=== PATIENT | male | born 1990 | race African-American/Black ===

== ENCOUNTER 2020-10-31 05:25 | Emergency (ER) | payer SELFPAY ==
[~2020-10-31] VITALS: Ht 172.7 cm; Wt 87.0 kg
[2020-10-31] MEDS ORDERED: LIDOCAINE HCL/PF 1% 10 MG/ML 5ML VIAL IJ ONE (06:00)
[2020-10-31 06:09] LABS: BASOPHILS % 0.6 % (0.0-2.0); EOSINOPHILS % 0.9 % (0.0-5.0); HEMATOCRIT. 44.9 % (42.0-52.0); HEMOGLOBIN. 15.1 g/dL (14.0-18.0); LYMPHOCYTES % 42.8 % (20.0-50.0); MEAN CORPUSCULAR HEMOGLOBIN 29.5 pg (28.0-32.0); MEAN CORPUSCULAR VOLUME 87.8 fL (80.0-94.0); MEAN PLATELET VOLUME 7.3 fl (7.4-10.4); MONOCYTES % 7.3 % (2.0-8.0); NEUTROPHILS % 48.4 % (40.0-76.0); PLATELET 395 x1000/uL (130-400); RED BLOOD CELL COUNT 5.11 mill/uL (4.7-6.1); RED CELL DISTRIBUTION WIDTH 14.2 % (11.6-14.6)
[2020-10-31 06:17] LABS: CHLORIDE 106 mEq/L (98-107)
[2020-10-31 06:30] LABS: ETHANOL BLOOD 442 mg/dL
[2020-10-31 11:20] VITALS: BP 119/72
== END 2020-10-31 11:51 | disposition home or self-care (01) ==
LOC: ER 05:25
DX: S01.112A Laceration without foreign body of left eyelid and periocular area, initial encounter (principal); F10.229 Alcohol dependence with intoxication, unspecified; Y90.8 Blood alcohol level of 240 mg/100 ml or more; W01.0XXA Fall on same level from slipping, tripping and stumbling without subsequent striking against object, initial encounter; Y93.89 Activity, other specified; Y92.488 Other paved roadways as the place of occurrence of the external cause
CPT/HCPCS: 12011; 36415; 70450; 70486; 80053; 80320; 85025; 93005; 99285; J3490; G0480

== ENCOUNTER 2023-12-12 20:02 | Emergency (ER) | payer SELFPAY ==
[~2023-12-12] VITALS: Ht 170.2 cm; Wt 64.0 kg
[2023-12-12 20:11] VITALS: BP 142/76; PULSE 122; RESP 18; TEMP 98.4; O2SAT 98
[2023-12-12] MEDS ORDERED: KEPP500 MT (21:08)
== END 2023-12-12 21:39 | disposition home or self-care (01) ==
LOC: ER 20:02
DX: R55 Syncope and collapse (principal); F10.20 Alcohol dependence, uncomplicated; Y90.9 Presence of alcohol in blood, level not specified
CPT/HCPCS: 93005; 99283